=== PATIENT | female | born 1965 | race Caucasian/White ===

== ENCOUNTER → 2020-06-26 12:00 | Outpatient (BNVA) | payer MEDICAID, SELFPAY | PROVIDERS: Family Provider Family Medicine; PCP Internal Medicine Pulmonary Disease; Visit Provider Family Medicine | DX: E11.9 Type 2 diabetes mellitus without complications (principal); G89.29 Other chronic pain; J44.9 Chronic obstructive pulmonary disease, unspecified; E03.9 Hypothyroidism, unspecified; E06.3 Autoimmune thyroiditis; R10.2 Pelvic and perineal pain; N95.0 Postmenopausal bleeding; B37.2 Candidiasis of skin and nail; G47.33 Obstructive sleep apnea (adult) (pediatric) | CPT/HCPCS: 80053; 83036; 84439; 84443; 84481; 85025; 86376 ==

== ENCOUNTER → 2020-07-03 10:48 | Outpatient (BNVA) | payer MEDICAID, SELFPAY | PROVIDERS: Family Provider Family Medicine; PCP Internal Medicine Pulmonary Disease; Visit Provider Obstetrics & Gynecology | DX: N95.0 Postmenopausal bleeding (principal) | CPT/HCPCS: 88305; 88360 ==

== ENCOUNTER → 2020-07-11 08:25 | Outpatient (BNVA) | payer MEDICAID, SELFPAY | PROVIDERS: Family Provider Family Medicine; PCP Internal Medicine Pulmonary Disease; Visit Provider Obstetrics & Gynecology | DX: N95.0 Postmenopausal bleeding (principal) | CPT/HCPCS: 76830 ==

== ENCOUNTER → 2020-07-16 09:51 | Outpatient (BNVA) | payer MEDICAID, SELFPAY | PROVIDERS: Family Provider Family Medicine; PCP Internal Medicine Pulmonary Disease; Referring Provider Family Medicine; Visit Provider Internal Medicine | DX: E11.40 Type 2 diabetes mellitus with diabetic neuropathy, unspecified (principal); K76.0 Fatty (change of) liver, not elsewhere classified; Z79.4 Long term (current) use of insulin | CPT/HCPCS: 99203; 99204 ==

== ENCOUNTER 2020-07-18 07:43 | Outpatient (CLI) | payer MEDICAID, SELFPAY ==
--- NOTE | 2020-07-18 08:00 | US_ITS ---
WS: [id number] RIGHT UPPER QUADRANT ULTRASOUND HISTORY: R10.11 - Right upper quadrant pain COMPARISON: None available. Liver: 21.3 cm in length. Markedly enlarged liver with severe coarsened echotexture. The entire liver cannot be imaged due to attenuation. No mass or bile duct dilatation. Gallbladder: Normally distended gallbladder with no stones or wall thickening. CBD: 0.3 cm Pancreas: Tail is obscured by bowel gas. The remaining pancreas is negative. Right kidney: 12.6 cm in length. Poorly visualized but no abnormality. Aorta and IVC: Unremarkable abdominal aorta and IVC. No ascites. US/US abdomen limited [id number] IMPRESSION: 1. Severe hepatomegaly and hepatic steatosis. 2. Negative gallbladder. 3. Quality of examination is compromised by body habitus.
== END 2020-07-18 07:44 | disposition home or self-care (01) ==
LOC: RAD 07:44
PROVIDERS: PCP Family Medicine; Visit Provider Family Medicine
DX: R10.11 Right upper quadrant pain; R16.0 Hepatomegaly, not elsewhere classified; K76.0 Fatty (change of) liver, not elsewhere classified
CPT/HCPCS: 76705

== ENCOUNTER 2020-08-22 08:48 | Outpatient (CLI) | payer MEDICAID, SELFPAY ==
--- NOTE | 2020-08-22 09:00 | MM_ITS ---
WS: [id number] DIAGNOSTIC BILATERAL DIGITAL MAMMOGRAM WITH CAD LEFT breast ultrasound, limited HISTORY: lump 10 oclock lt breast COMPARISON: None available. TECHNIQUE: Bilateral craniocaudad, mediolateral oblique, and mediolateral views are submitted. Comput er aided detection utilized. Breast composition: The breasts are almost entirely fatty. Triangular marker is placed over the media l upper LEFT breast. No underlying mass identified. No distortion. There are no suspicious calcificat ions or masses identified. LEFT breast ultrasound, limited. Ultrasound is directed to the palpable abnormality around the 10:00 axis. There is no mass identified . No increased vascularity. MM/[place] [id number] IMPRESSION: BI-RADS: 2-Benign FOLLOW UP: 1 Year Follow-up
--- NOTE | 2020-08-22 09:30 | US_ITS ---
WS: [id number] DIAGNOSTIC BILATERAL DIGITAL MAMMOGRAM WITH CAD LEFT breast ultrasound, limited HISTORY: lump 10 oclock lt breast COMPARISON: None available. TECHNIQUE: Bilateral craniocaudad, mediolateral oblique, and mediolateral views are submitted. Comput er aided detection utilized. Breast composition: The breasts are almost entirely fatty. Triangular marker is placed over the media l upper LEFT breast. No underlying mass identified. No distortion. There are no suspicious calcificat ions or masses identified. LEFT breast ultrasound, limited. Ultrasound is directed to the palpable abnormality around the 10:00 axis. There is no mass identified . No increased vascularity. US/US breast LT limited* [id number] IMPRESSION: BI-RADS: 2-Benign FOLLOW UP: 1 Year Follow-up
== END 2020-08-22 08:49 | disposition home or self-care (01) ==
LOC: RADSHAW 08:50
PROVIDERS: PCP Family Medicine; Visit Provider Family Medicine
DX: N63.22 Unspecified lump in the left breast, upper inner quadrant (principal)
CPT/HCPCS: 76642; 77066

== ENCOUNTER 2020-09-10 11:07 | Outpatient (CLI) | payer MEDICAID, SELFPAY ==
--- NOTE | 2020-09-10 11:23 | XR_ITS ---
WS: [id number] CERVICAL SPINE 3 VIEWS HISTORY: M54.12 - Radiculopathy, cervical region COMPARISON: None available. Straightening of the normal cervical lordosis. Moderate disc space narrowing at C5-6 and C6-7. No fra ctures. Mild hypertrophic osteophytosis most significant at the C5-6 level. Lateral masses are aligned. Odontoid is intact. Soft tissues are normal. XR/XR cervical spine 3V* [id number] IMPRESSION: Moderate spondylitic changes most significant at C5-6 and C6-7.
== END 2020-09-10 11:08 | disposition home or self-care (01) ==
LOC: RAD 11:14
PROVIDERS: PCP Family Medicine; Visit Provider Family Medicine
DX: M54.12 Radiculopathy, cervical region (principal)
CPT/HCPCS: 72040

== ENCOUNTER → 2020-10-01 17:57 | Outpatient (BNVA) | payer MEDICAID, SELFPAY | PROVIDERS: PCP Family Medicine; Visit Provider Family Medicine | DX: E11.9 Type 2 diabetes mellitus without complications (principal); B37.2 Candidiasis of skin and nail; K76.0 Fatty (change of) liver, not elsewhere classified; E03.9 Hypothyroidism, unspecified; E06.3 Autoimmune thyroiditis; M54.2 Cervicalgia; G89.29 Other chronic pain; M54.12 Radiculopathy, cervical region; R10.11 Right upper quadrant pain | CPT/HCPCS: 80053; 82728; 83036; 83516; 83550; 84439; 84443; 84481; 85025; 86038; 86705; 86706; 86708; 86803; 87340 ==

== ENCOUNTER 2020-10-09 06:00 | Outpatient (RCR) | payer MEDICAID, SELFPAY | END 2020-11-03 23:59 | disposition home or self-care (01) | LOC: MPT 06:00 | PROVIDERS: PCP Family Medicine; Referring Provider Family Medicine; Visit Provider Family Medicine | DX: M54.2 Cervicalgia (principal); G89.29 Other chronic pain | CPT/HCPCS: 97110; 97162 ==

== ENCOUNTER → 2021-01-08 10:46 | Outpatient (BNVA) | payer MEDICAID, SELFPAY | PROVIDERS: PCP Family Medicine; Visit Provider Family Medicine | DX: E11.9 Type 2 diabetes mellitus without complications (principal); J44.9 Chronic obstructive pulmonary disease, unspecified; J30.2 Other seasonal allergic rhinitis; K76.0 Fatty (change of) liver, not elsewhere classified; R10.11 Right upper quadrant pain; G89.29 Other chronic pain; G47.33 Obstructive sleep apnea (adult) (pediatric) | CPT/HCPCS: 80053; 83036 ==

== ENCOUNTER → 2021-07-16 10:46 | Outpatient (BNVA) | payer MEDICAID, SELFPAY | PROVIDERS: PCP Family Medicine; Visit Provider Family Medicine | DX: E11.9 Type 2 diabetes mellitus without complications (principal); J44.9 Chronic obstructive pulmonary disease, unspecified; J30.2 Other seasonal allergic rhinitis; I10 Essential (primary) hypertension; E06.3 Autoimmune thyroiditis; K76.0 Fatty (change of) liver, not elsewhere classified; R10.11 Right upper quadrant pain; G89.29 Other chronic pain; I16.0 Hypertensive urgency | CPT/HCPCS: 80053; 80061; 83036; 84443; 85025 ==

== ENCOUNTER → 2021-10-09 14:04 | Outpatient (BNVA) | payer MEDICAID, SELFPAY | PROVIDERS: PCP Family Medicine; Visit Provider Family Medicine | DX: E11.9 Type 2 diabetes mellitus without complications (principal); I10 Essential (primary) hypertension; K76.0 Fatty (change of) liver, not elsewhere classified; M47.816 Spondylosis without myelopathy or radiculopathy, lumbar region; R10.11 Right upper quadrant pain; G89.29 Other chronic pain; Z12.31 Encounter for screening mammogram for malignant neoplasm of breast | CPT/HCPCS: 80048; 83036 ==

== ENCOUNTER 2021-10-25 10:41 | Outpatient (CLI) | payer MEDICAID, SELFPAY ==
--- NOTE | 2021-10-25 11:10 | MM_ITS ---
WS: [id number] BILATERAL SCREENING DIGITAL BREAST TOMOSYNTHESIS MAMMOGRAM WITH CAD HISTORY: Z12.39 - Encounter for other screening for malignant neoplasm. COMPARISON: 08/22/2020, 03/09/2015 Bilateral CC and MLO views with tomosynthesis and synthetic mammography submitted. Computer aided det ection analyzed. Breast composition: The breasts are almost entirely fatty. No suspicious masses, microcalcifications or architectural distortion. MM/[place] [id number] IMPRESSION: BI-RADS: 1-Negative FOLLOW UP: 1 Year Follow-up
== END 2021-10-25 10:42 | disposition home or self-care (01) ==
PROVIDERS: PCP Family Medicine; Visit Provider Family Medicine
DX: Z12.31 Encounter for screening mammogram for malignant neoplasm of breast (principal)
CPT/HCPCS: 77063; 77067

== ENCOUNTER → 2022-01-06 10:56 | Outpatient (BNVA) | payer MEDICAID, SELFPAY | PROVIDERS: PCP Family Medicine; Visit Provider Family Medicine | DX: R10.30 Lower abdominal pain, unspecified (principal); E11.9 Type 2 diabetes mellitus without complications; I10 Essential (primary) hypertension; E03.9 Hypothyroidism, unspecified; E06.3 Autoimmune thyroiditis; R10.2 Pelvic and perineal pain; K59.00 Constipation, unspecified; K76.0 Fatty (change of) liver, not elsewhere classified; J30.2 Other seasonal allergic rhinitis; J44.9 Chronic obstructive pulmonary disease, unspecified; Z68.44 Body mass index [BMI] 60.0-69.9, adult; K59.04 Chronic idiopathic constipation | CPT/HCPCS: 80048; 81000; 83036; 84439; 84443; 84481; 87086 ==

== ENCOUNTER → 2022-07-02 10:05 | Outpatient (BNVA) | payer MEDICAID, SELFPAY | PROVIDERS: PCP Family Medicine; Visit Provider Family Medicine | DX: J30.2 Other seasonal allergic rhinitis (principal); I10 Essential (primary) hypertension; K76.0 Fatty (change of) liver, not elsewhere classified; E11.9 Type 2 diabetes mellitus without complications; M25.562 Pain in left knee; E03.9 Hypothyroidism, unspecified; E06.3 Autoimmune thyroiditis; Z13.220 Encounter for screening for lipoid disorders; Z13.6 Encounter for screening for cardiovascular disorders; R10.11 Right upper quadrant pain | CPT/HCPCS: 73562 ==

== ENCOUNTER → 2022-07-15 13:03 | Outpatient (BNVA) | payer MEDICAID, SELFPAY | PROVIDERS: PCP Family Medicine; Referring Provider Family Medicine; Visit Provider Orthopaedic Surgery | DX: M25.562 Pain in left knee (principal) | CPT/HCPCS: 99203 ==

== ENCOUNTER 2022-07-28 13:07 | Outpatient (CLI) | payer MEDICAID, SELFPAY ==
--- NOTE | 2022-07-28 13:00 | US_ITS ---
WS: [id number] Complete ABDOMINAL ULTRASOUND HISTORY: R10.11 - Right upper quadrant pain COMPARISON: 07/18/2020 Very limited evaluation of the abdominal structures due to body habitus. Liver: 20.0 cm in length. Moderate hepatomegaly and hepatic steatosis. No mass or bile duct dilatatio n. Portal Vein: Normal hepatopetal flow with monophasic waveform. Gallbladder: Status post cholecystectomy. CBD: 0.2 cm Pancreas: Partially visualized and normal. Right kidney: 9.9 cm x 5.6 x 4.3 cm. Cortex:0.8 cm. Normal size and echogenicity. No hydronephrosis or mass. Left kidney: 9.7 cm x 4.7 cm x 4.8 cm. Cortex: 1.9 cm. Limited evaluation of the kidney due to body habitus. No hydronephrosis. Spleen: Normal size and echogenicity. Aorta and IVC: Unremarkable abdominal aorta and IVC. US/US abdomen complete* [id number] Impression: 1. Quality of this examination is suboptimal due to body habitus. 2. Prior cholecystectomy. 3. No renal obstruction. 4. Moderate hepatic steatosis and hepatomegaly.
== END 2022-07-28 13:08 | disposition home or self-care (01) ==
LOC: RAD 13:09
PROVIDERS: PCP Family Medicine; Visit Provider Family Medicine
DX: R10.11 Right upper quadrant pain (principal); K76.0 Fatty (change of) liver, not elsewhere classified
CPT/HCPCS: 76700; 80053; 80061; 83036; 84443

== ENCOUNTER → 2022-09-18 08:29 | Outpatient (BNVA) | payer MEDICAID, SELFPAY | PROVIDERS: PCP Family Medicine; Visit Provider Family Medicine | DX: R06.02 Shortness of breath (principal); I10 Essential (primary) hypertension; R00.2 Palpitations; E11.9 Type 2 diabetes mellitus without complications; J30.2 Other seasonal allergic rhinitis; F32.A Depression, unspecified; J44.9 Chronic obstructive pulmonary disease, unspecified; J41.0 Simple chronic bronchitis; E06.3 Autoimmune thyroiditis; K76.0 Fatty (change of) liver, not elsewhere classified; F32.1 Major depressive disorder, single episode, moderate | CPT/HCPCS: 80053; 83036 ==

== ENCOUNTER 2022-10-03 12:02 | Outpatient (CLI) | payer MEDICAID, SELFPAY ==
--- NOTE | 2022-10-03 12:45 | USCV_ITS ---
Ani Oscar Age: 57 Gender: F : 1965 Exam Date: 10/03/2022 13:08 Ordering Phys: Cielo Rascon MD Technologist: Exam Location: [facility] [place] Indication: chest pain BP: 130 / 74 HR: 83 Rhythm: Sinus Technical Quality: Adequate MEASUREMENTS (Male / Female) Normal Values 2D ECHO LV Ejection Fraction MOD 2C 63.8 % LV Ejection Fraction 2C AL 63.1 % DOPPLER AV Peak Velocity 172.7 cm/s LVOT Peak Velocity 110.0 cm/s MV Area PHT 5.0 cm squared Mitral E to A Ratio 0.8 MV E' Velocity 43.5 cm/s Mitral E to MV E' Ratio 7.1 Mitral E to LV E' Lateral Ratio 6.5 Mitral E to LV E' Septal Ratio 7.9 TR Peak Velocity 171.3 cm/s TR Peak Gradient 11.7 mmHg TV Peak E Velocity 85.0 cm/s Right Atrial Pressure 3.0 mmHg Pulmonary Artery Systolic Pressu 14.7 mmHg RV Acceleration Time 0.1 s FINDINGS Left Ventricle Left ventricle is normal in size. LV systolic function normal with EF of 55 to 60%. No regional wall motion abnormalities. Grade 1 diastolic dysfunction Right Ventricle Normal in size and function Right Atrium Normal size Left Atrium Normal in size Mitral Valve Structurally normal mitral valve. Trace mitral regurgitation Aortic Valve Structurally normal aortic valve. No stenosis stenosis or regurgitation. Tricuspid Valve Mild tricuspid regurgitation. Insufficient TR jet to calculate RVSP Pulmonic Valve Not well visualized Pericardium Normal Aorta Normal in size IVC Appears to be normal CONCLUSIONS LV systolic function is normal with EF 55 to 60%. Grade 1 diastolic dysfunction. Trace mitral regurgitation Mild tricuspid regurgitation No comparison studies are available. Lucian Carlson MD (Electronically Signed) Final Date: 07 October 2022 13:49 S
== END 2022-10-03 12:03 | disposition home or self-care (01) ==
PROVIDERS: PCP Family Medicine; Visit Provider Family Medicine
DX: I50.30 Unspecified diastolic (congestive) heart failure (principal); I34.0 Nonrheumatic mitral (valve) insufficiency; I07.1 Rheumatic tricuspid insufficiency
CPT/HCPCS: 80053; 83036; 93306

== ENCOUNTER → 2022-11-18 08:41 | Outpatient (BNVA) | payer MEDICAID, SELFPAY | PROVIDERS: PCP Family Medicine; Visit Provider Internal Medicine Cardiovascular Disease | DX: I10 Essential (primary) hypertension (principal); R00.2 Palpitations; R06.02 Shortness of breath; R00.0 Tachycardia, unspecified; R00.1 Bradycardia, unspecified | CPT/HCPCS: 93270 ==

== ENCOUNTER → 2022-11-19 09:38 | Outpatient (BNVA) | payer MEDICAID, SELFPAY | PROVIDERS: PCP Family Medicine; Visit Provider Family Medicine | DX: E06.3 Autoimmune thyroiditis (principal); I10 Essential (primary) hypertension; I50.9 Heart failure, unspecified; E11.9 Type 2 diabetes mellitus without complications; B37.2 Candidiasis of skin and nail | CPT/HCPCS: 81000 ==

== ENCOUNTER → 2022-11-26 11:01 | Outpatient (BNVA) | payer MEDICAID, SELFPAY | PROVIDERS: PCP Family Medicine; Visit Provider Internal Medicine Pulmonary Disease | DX: J30.2 Other seasonal allergic rhinitis (principal); R06.02 Shortness of breath; J44.9 Chronic obstructive pulmonary disease, unspecified; I50.9 Heart failure, unspecified; G47.33 Obstructive sleep apnea (adult) (pediatric) | CPT/HCPCS: 82785; 86003; 99204 ==

== ENCOUNTER → 2023-01-01 11:33 | Outpatient (BNVA) | payer MEDICAID, SELFPAY | PROVIDERS: PCP Family Medicine; Visit Provider Family Medicine | DX: E11.9 Type 2 diabetes mellitus without complications (principal); I50.32 Chronic diastolic (congestive) heart failure; I50.9 Heart failure, unspecified; E06.3 Autoimmune thyroiditis; I10 Essential (primary) hypertension | CPT/HCPCS: 80053; 83036; 83880; 84443 ==

== ENCOUNTER 2023-02-02 20:00 | Outpatient (CLI) | payer MEDICAID, SELFPAY | END 2023-02-02 20:01 | disposition home or self-care (01) | LOC: SLEEP 02-03 05:39 | PROVIDERS: PCP Family Medicine; Visit Provider Internal Medicine Pulmonary Disease | DX: G47.33 Obstructive sleep apnea (adult) (pediatric) (principal); J44.9 Chronic obstructive pulmonary disease, unspecified; I50.9 Heart failure, unspecified | CPT/HCPCS: 82785; 86003; 95810; 99204 ==

== ENCOUNTER → 2023-02-18 14:56 | Outpatient (BNVA) | payer MEDICAID, SELFPAY | PROVIDERS: PCP Family Medicine; Visit Provider Internal Medicine Cardiovascular Disease | DX: R06.02 Shortness of breath (principal); I11.0 Hypertensive heart disease with heart failure; I50.32 Chronic diastolic (congestive) heart failure; G47.33 Obstructive sleep apnea (adult) (pediatric); E11.9 Type 2 diabetes mellitus without complications; Z79.4 Long term (current) use of insulin; Z87.891 Personal history of nicotine dependence | CPT/HCPCS: 99214 ==

== ENCOUNTER → 2023-03-04 12:21 | Outpatient (BNVA) | payer MEDICAID, SELFPAY | PROVIDERS: PCP Family Medicine; Visit Provider Internal Medicine Pulmonary Disease | DX: J45.40 Moderate persistent asthma, uncomplicated (principal); J41.0 Simple chronic bronchitis; I50.32 Chronic diastolic (congestive) heart failure; G47.33 Obstructive sleep apnea (adult) (pediatric); J82.83 Eosinophilic asthma; E66.01 Morbid (severe) obesity due to excess calories; Z68.44 Body mass index [BMI] 60.0-69.9, adult | CPT/HCPCS: 99214 ==

== ENCOUNTER 2023-03-11 12:14 | Outpatient (CLI) | payer MEDICAID, SELFPAY ==
--- NOTE | 2023-03-11 12:45 | CT_ITS ---
WS: [id number] LDCT LUNG CANCER SCREENING HISTORY: Cancer Screen TECHNIQUE: Axial imaging performed from the apices to 1 cm below the costophrenic angles. Coronal and sagittal reformats are submitted with axial MIP series. All CT scans at [facility] use at least one of these dose optimization techniques: automated exposure control; mA and/or kV adjustment per patient size (includes targeted exams where dose is matched to clinical indication); or iterativ e reconstruction. DLP: 287.11 mGy.cm DIvol: Mean CTDIvol: 7.70 (mGy) COMPARISON: None available. Diagnostic quality: Satisfactory Lungs: Lungs are well expanded. Linear scar or atelectasis in the anterior RIGHT middle lobe. No mass or nodules. No endobronchial lesions. Heart: Normal size heart with no pericardial effusion.. Other findings: Liver is enlarged with hepatic steatosis. The entire liver is not visualized. IMPRESSION: CT/CT lung screening [id number] LUNG-RADS: 1-Negative FOLLOW UP: 12 Month: Continue annual screening with LDCT OTHER FINDINGS (S MODIFIER): None.
== END 2023-03-11 12:15 | disposition home or self-care (01) ==
LOC: RAD 12:14
PROVIDERS: PCP Family Medicine; Visit Provider Internal Medicine Pulmonary Disease
DX: Z12.2 Encounter for screening for malignant neoplasm of respiratory organs (principal); Z87.891 Personal history of nicotine dependence
CPT/HCPCS: 71271

== ENCOUNTER 2023-05-04 20:00 | Outpatient (CLI) | payer MEDICAID, SELFPAY | END 2023-05-04 20:01 | disposition home or self-care (01) | LOC: SLEEP 05-05 06:38 | PROVIDERS: PCP Family Medicine; Visit Provider Internal Medicine Pulmonary Disease | DX: G47.33 Obstructive sleep apnea (adult) (pediatric) (principal) | CPT/HCPCS: 95811 ==

== ENCOUNTER 2023-05-21 07:16 | Outpatient (CLI) | payer MEDICAID, SELFPAY ==
[2023-05-21 08:19] VITALS: PULSE 84; RESP 18; O2SAT 97
[2023-05-21] MEDS: albuterol 2.5 mg/3 mL Neb INHALATION (08:19)
[2023-05-21 08:24] VITALS: PULSE 89
== END 2023-05-21 07:17 | disposition home or self-care (01) ==
LOC: RT 07:17
PROVIDERS: PCP Family Medicine; Visit Provider Internal Medicine Pulmonary Disease
DX: J44.9 Chronic obstructive pulmonary disease, unspecified (principal); I50.9 Heart failure, unspecified; R94.2 Abnormal results of pulmonary function studies
CPT/HCPCS: 94060; 94618; 94726; 94729; J7613

== ENCOUNTER → 2023-06-11 12:51 | Outpatient (BNVA) | payer MEDICAID, SELFPAY | PROVIDERS: PCP Family Medicine; Visit Provider Internal Medicine Pulmonary Disease | DX: J45.40 Moderate persistent asthma, uncomplicated (principal); J41.0 Simple chronic bronchitis; I50.32 Chronic diastolic (congestive) heart failure; G47.33 Obstructive sleep apnea (adult) (pediatric); Z87.891 Personal history of nicotine dependence | CPT/HCPCS: 99214 ==

== ENCOUNTER → 2023-08-03 13:52 | Outpatient (BNVA) | payer MEDICAID, SELFPAY | PROVIDERS: PCP Family Medicine; Visit Provider Family Medicine | DX: K76.0 Fatty (change of) liver, not elsewhere classified (principal); Z86.010 Personal history of colon polyps; Z12.11 Encounter for screening for malignant neoplasm of colon; E11.9 Type 2 diabetes mellitus without complications; J30.2 Other seasonal allergic rhinitis; I10 Essential (primary) hypertension; R06.02 Shortness of breath; J44.9 Chronic obstructive pulmonary disease, unspecified; I50.32 Chronic diastolic (congestive) heart failure | CPT/HCPCS: 80053; 80061; 83036 ==

== ENCOUNTER → 2023-08-27 08:25 | Outpatient (BNVA) | payer MEDICAID, SELFPAY | PROVIDERS: PCP Family Medicine; Visit Provider Internal Medicine Pulmonary Disease | DX: J45.52 Severe persistent asthma with status asthmaticus (principal); Z79.52 Long term (current) use of systemic steroids; J41.0 Simple chronic bronchitis; I50.32 Chronic diastolic (congestive) heart failure; G47.33 Obstructive sleep apnea (adult) (pediatric); Z87.891 Personal history of nicotine dependence | CPT/HCPCS: 99215 ==

== ENCOUNTER → 2023-10-27 11:26 | Outpatient (BNVA) | payer MEDICAID, SELFPAY | PROVIDERS: PCP Family Medicine; Visit Provider Family Medicine | DX: I10 Essential (primary) hypertension (principal); E11.9 Type 2 diabetes mellitus without complications | CPT/HCPCS: 80053; 83036 ==

== ENCOUNTER → 2023-12-23 12:12 | Outpatient (BNVA) | payer MEDICAID, SELFPAY | PROVIDERS: PCP Family Medicine; Visit Provider Internal Medicine Critical Care Medicine | DX: K21.00 Gastro-esophageal reflux disease with esophagitis, without bleeding (principal); K21.9 Gastro-esophageal reflux disease without esophagitis; R06.02 Shortness of breath; J45.41 Moderate persistent asthma with (acute) exacerbation; J41.0 Simple chronic bronchitis; G47.33 Obstructive sleep apnea (adult) (pediatric); E66.01 Morbid (severe) obesity due to excess calories; Z68.44 Body mass index [BMI] 60.0-69.9, adult; Z71.89 Other specified counseling; Z71.3 Dietary counseling and surveillance; Z71.82 Exercise counseling | CPT/HCPCS: 99214 ==

== ENCOUNTER → 2024-01-11 09:31 | Outpatient (BNVA) | payer MEDICAID, SELFPAY | PROVIDERS: PCP Family Medicine; Visit Provider Family Medicine | DX: I10 Essential (primary) hypertension (principal); I50.32 Chronic diastolic (congestive) heart failure; E11.9 Type 2 diabetes mellitus without complications; E06.3 Autoimmune thyroiditis | CPT/HCPCS: 80053; 83036; 83735; 84439; 84443; 84481 ==

== ENCOUNTER → 2024-06-13 14:15 | Outpatient (BNVA) | payer MEDICAID, SELFPAY | PROVIDERS: PCP Family Medicine; Visit Provider Internal Medicine | DX: I11.0 Hypertensive heart disease with heart failure (principal); I50.32 Chronic diastolic (congestive) heart failure; G47.33 Obstructive sleep apnea (adult) (pediatric); E11.9 Type 2 diabetes mellitus without complications; Z79.4 Long term (current) use of insulin; Z87.891 Personal history of nicotine dependence | CPT/HCPCS: 99214 ==

== ENCOUNTER → 2024-07-19 13:27 | Outpatient (BNVA) | payer MEDICAID, SELFPAY | PROVIDERS: PCP Family Medicine; Visit Provider Family Medicine | DX: E11.42 Type 2 diabetes mellitus with diabetic polyneuropathy (principal); M79.604 Pain in right leg; I87.8 Other specified disorders of veins; R60.0 Localized edema; I50.32 Chronic diastolic (congestive) heart failure; I10 Essential (primary) hypertension; E11.9 Type 2 diabetes mellitus without complications; N18.2 Chronic kidney disease, stage 2 (mild) | CPT/HCPCS: 80053; 80061; 83036 ==

== ENCOUNTER → 2024-10-20 10:01 | Outpatient (BNVA) | payer MEDICAID, SELFPAY | PROVIDERS: PCP Family Medicine; Visit Provider Family Medicine | DX: I10 Essential (primary) hypertension (principal); E11.9 Type 2 diabetes mellitus without complications; I50.32 Chronic diastolic (congestive) heart failure | CPT/HCPCS: 80048; 83036 ==

== ENCOUNTER → 2024-12-21 09:03 | Outpatient (BNVA) | payer MEDICAID, SELFPAY | PROVIDERS: PCP Family Medicine; Visit Provider Family Medicine | DX: S69.92XA Unspecified injury of left wrist, hand and finger(s), initial encounter (principal); W19.XXXA Unspecified fall, initial encounter; Y92.009 Unspecified place in unspecified non-institutional (private) residence as the place of occurrence of the external cause | CPT/HCPCS: 73110; 73130 ==

== ENCOUNTER → 2025-03-03 09:50 | Outpatient (BNVA) | payer MEDICAID, SELFPAY | PROVIDERS: PCP Family Medicine; Visit Provider Student in an Organized Health Care Education/Training Program | DX: R19.4 Change in bowel habit (principal) | CPT/HCPCS: 99204 ==

== ENCOUNTER 2025-03-14 07:48 | Day surgery (SDC) | payer MEDICAID, SELFPAY ==
[2025-03-14 08:18] VITALS: BP 166/99; PULSE 78; RESP 20; TEMP 36.4; O2SAT 95; BMI 49.4
--- NOTE | 2025-03-14 09:20 | ANES.PREANE2 ---
Pre-Anesthetic Assessment Height/Weight: Height 5 ft 4 in Weight 288 lb Temp Pulse Resp BP Pulse Ox O2 Del Method 97.6 F 78 20 H 166/99 95 Room Air 03/14/25 08:18 03/14/25 08:18 03/14/25 08:18 03/14/25 08:18 03/14/25 08:18 03/14/25 08:18 Preop Diagnosis: Screening colonoscopy Operation Date: 03/14/25 09:30 Proposed Procedures p Colonoscopy [id number] G0105 Z12.11(Not Applicable) - Dustin Telles MD Was Beta Kemal taken within 24 hours: N/A Was Clonidine taken within 24 hours: N/A Last intake: Intake Last Liquid Date 03/13/25 Last Liquid Time 20:00 Last Solid Date 03/12/25 Last Solid Time 19:00 Social No alcohol and No tobacco Exam alert, oriented x 3, clear to auscultation bilaterally and regular rate & rhythm Airway Submandibular: within normal limits Cervical ROM: within normal limits Mallampati: Class II Dentition: full Anesthetic Plan ASA status: 3 Anesthesia: MAC Other: Patient states that the only issue she has had with anesthesia was delayed emergence but this was following a very large surgery where she received a lot of medications Completed bowel prep History of VICKY, wears CPAP normally but has not worn it for the last month due to a cut on her face Type 2 diabetes, on tirzepatide. Last taken over a week ago. Preop BS 111 CKD history, no dialysis Patient states that she has had seizures associated with medication but this was over 20 years ago Plan for MAC anesthesia Medications/Allergies Home Medications ?Medication ?Instructions ?Recorded ?Confirmed ?Last Taken ?Type alcohol swabs 1 pad topical TID PRN as needed to 06/26/20 03/03/25 Unknown Rx check blood sugar 30 days #100 ea blood-glucose meter (Blood Glucose #1 ea 07/31/20 03/03/25 Unknown Rx Monitoring kit) lancets #100 ea 08/06/21 03/03/25 Unknown Rx diphenhydramine HCl 25 mg tablet 25 mg PO TID PRN allergies 11/26/22 03/08/25 03/12/25 History (Benadryl Allergy) pen needle, diabetic 29 gauge x #100 ea 11/28/22 03/03/25 Unknown Rx 1/2 (TechLITE Pen Needle) resmetirom 100 mg tablet 100 mg PO DAILY 06/13/24 03/08/25 1 Month Ago History (Rezdiffra) ~02/06/25 blood sugar diagnostic (OneTouch #50 ea 07/12/24 03/03/25 Unknown Rx Verio test strips) tirzepatide (weight loss) 10 8 mg SUBCUT DIRECTED 12/21/24 03/08/25 03/06/25 History mg/0.5 mL subcutaneous solution (Zepbound) fluticasone 500 mcg-salmeterol 50 1 inh inhalation BID #60 ea 02/20/25 03/08/25 03/13/25 Rx mcg/dose blistr powdr for inhalation (Advair Diskus) hydrochlorothiazide 25 mg tablet 25 mg PO BID PRN swelling 90 days 02/20/25 03/08/25 03/13/25 Rx #180 tabs insulin glargine 100 unit/mL (3 See Rx Instructions .Route 02/20/25 03/08/25 03/08/25 Rx mL) subcutaneous pen (Lantus .COMPLEX #30 mL Solostar U-100 Insulin) montelukast 10 mg tablet 10 mg PO DAILY #90 tabs 02/20/25 03/08/25 03/08/25 Rx tiotropium bromide 18 mcg capsule 1 cap inhalation DAILY #60 02/20/25 03/08/25 2 Months Ago Rx with inhalation device (Spiriva inhalations ~01/06/25 with HandiHaler) loratadine 10 mg tablet 10 mg PO DAILY 03/08/25 03/08/25 03/13/25 History albuterol sulfate 90 mcg/actuation 2 puff inhalation QID PRN 03/14/25 03/14/25 03/14/25 07:00 History aerosol inhaler (Ventolin HFA) Shortness Of Breath Or Wheezing Allergies Allergy/AdvReac Type Severity Reaction Status Date / Time permethrin (From RID Allergy Severe ALGY-Seizur Verified 03/08/25 08:44 Complete Lice Strong Kit) es piperonyl butoxide (From RID Allergy Severe ALGY-Seizur Verified 03/08/25 08:44 Complete Lice Strong Kit) es pyrethrins (From RID Allergy Severe ALGY-Seizur Verified 03/08/25 08:44 Complete Lice Strong Kit) es theophylline (From Vidal-Dur) Allergy Unknown Verified 03/08/25 08:44 metformin AdvReac Severe ADR-Diarrhe Verified 03/08/25 08:44 a codeine AdvReac Mild ADR-Altered Verified 03/08/25 08:44 Mental Status Sulfa (Sulfonamide AdvReac Mild ADR-Abdominal Verified 03/08/25 08:44 Antibiotics) Pain Current Medications Generic Name Dose Route Start Last Admin Trade Name Freq PRN Reason Stop Dose Admin Sodium Chloride 1,000 mls @ 15 mls/hr 03/14/25 08:05 03/14/25 08:28 Sodium Chloride 0.9% IV 03/15/25 08:04 15 mls/hr .Q24H PRN Administration COLONOSCOPY FLUIDS PFSH Anesthesia Medical History (Updated 03/06/25 @ 09:58 by Dustin Telles MD) Endometrial carcinoma Inflammatory polyps of colon without complications VICKY (obstructive sleep apnea) Type 2 diabetes mellitus Tiffany's thyroiditis Surgical History H/O removal of cyst History of cholecystectomy H/O total hysterectomy 2019 Family History Mother Anesthesia complication Cancer melithemiosa-2x Clotting disorder Diabetes Father CAD (coronary artery disease) pacemaker placement Cancer skin cancer Hyperlipidemia Hypertension Grandmother Breast cancer maternal-- had both breasts removed Diabetes maternal Brother Cancer prostate CAD (coronary artery disease) triple bypass performed Chronic kidney disease (CKD) Diabetes Hypertension x2 Family/Other Cancer maternal uncle-tumor in abdominal area/stomach cancer? Diabetes all maternal aunts and uncles Thyroid disease maternal aunts Sister Chronic kidney disease (CKD) dialysis treatments/ in 2019 Diabetes Thyroid disease Family/Other Cancer maternal aunt-bladder cancer Denies family history of Ovarian cyst Social History Smoking and tobacco/nicotine status: former use of tobacco/nicotine Quit status (tobacco/nicotine): has quit using Year quit tobacco: 1988 Former quit date comment: 1 ppd X 20 years Alcohol intake: current Alcohol intake frequency: holidays/special occasions only Substance/Drug Use: never Female Reproductive History Spontaneous abortions: No Data Anesthesia Cardiac Studies: Echocardiogram 10/03/22 Cardiac Event Monitor 11/18/22
--- NOTE | 2025-03-14 09:38 | W.PM.OPSUD ---
Surgery/Procedure H&P Update DATE OF PROCEDURE: March 14, 2025 DATE H&P PERFORMED: 03/03/25 H&P UPDATE INFORMATION: I have reviewed H&P completed within last 30 days, I have examined patient prior to procedure, No changes to prior documentation and Risks and benefits of the procedure reviewed PREOP DIAGNOSIS: Screening colonoscopy PLANNED PROCEDURE: Operation Date: 03/14/25 09:30 Proposed Procedures p Colonoscopy [id number] G0105 Z12.11(Not Applicable) - Dustin Telles MD
[2025-03-14 09:59] VITALS: BP 126/68; PULSE 75; RESP 18; TEMP 36.1; O2SAT 95
[2025-03-14 10:14] VITALS: BP 129/79; PULSE 74; RESP 18; O2SAT 97
--- NOTE | 2025-03-14 10:45 | ANE.PACU2 ---
Inpatient post-anesthesia follow up: Airway intact: Yes Vital signs: Temperature 97.0 F Pulse Rate 74 Respiratory Rate 18 Blood Pressure 129/79 Pulse Oximetry 97 Oxygen Delivery Me thod Room Air Oxygen Flow Rate Fraction of Inspir ed Oxygen Hydration adequate: Yes Nausea and vomiting: No Pain level: 1 Mental status: Baseline
== END 2025-03-14 10:45 | disposition home or self-care (01) ==
PROVIDERS: PCP Family Medicine; Visit Provider Student in an Organized Health Care Education/Training Program
PROC: 0DJD8ZZ Inspection of Lower Intestinal Tract, Via Natural or Artificial Opening Endoscopic (ICD-10-PCS; CPT 45378; principal; 2025-03-14 09:30)
DX: Z12.11 Encounter for screening for malignant neoplasm of colon (principal); K57.30 Diverticulosis of large intestine without perforation or abscess without bleeding; Z85.42 Personal history of malignant neoplasm of other parts of uterus; E11.22 Type 2 diabetes mellitus with diabetic chronic kidney disease; N18.9 Chronic kidney disease, unspecified; G47.33 Obstructive sleep apnea (adult) (pediatric); Z99.89 Dependence on other enabling machines and devices; Z86.0100 Personal history of colon polyps, unspecified; E06.3 Autoimmune thyroiditis; Z80.8 Family history of malignant neoplasm of other organs or systems; Z80.3 Family history of malignant neoplasm of breast; Z80.42 Family history of malignant neoplasm of prostate; Z87.891 Personal history of nicotine dependence; Z79.4 Long term (current) use of insulin
CPT/HCPCS: 36416; 45378; 82962; J2704; J7030

== ENCOUNTER → 2025-03-20 14:01 | Outpatient (BNVA) | payer MEDICAID, SELFPAY | PROVIDERS: PCP Family Medicine; Visit Provider Internal Medicine | DX: I11.0 Hypertensive heart disease with heart failure (principal); I50.32 Chronic diastolic (congestive) heart failure; G47.33 Obstructive sleep apnea (adult) (pediatric); Z99.89 Dependence on other enabling machines and devices; Z87.891 Personal history of nicotine dependence | CPT/HCPCS: 99213 ==